=== PATIENT | female | born 1985 | race Caucasian/White ===

== ENCOUNTER 2017-01-12 20:32 | Emergency (ER) | payer OTHER ==
[~2017-01-12] VITALS: Ht 165.1 cm; Wt 97.5 kg
--- NOTE | ~2017-01-12 | CT114 ---
[facility] A Service of [facility] RADIOLOGY TEXT RESULTS PATIENT: DIO PRADHAN LOCATION: SED : [birth year] UNIT #: [id number] AGE: [address]: Jimmy Rich MD SEX: F ORDER DR: [id number] [place] [id number] E MR#: [id number] Acc #: [id number] NAME: DIO PRADHAN : 1985 SEX: F STUDY DATE/TIME: 01/12/2017 23:21 UNIT: SED ROOM: STUDY DESCRIPTION: CT Soft Tissue Neck W Cont Attending Physician: Jimmy Rich M.D. Ordering Physician: Jimmy Rich M.D. MEDICAL IMAGING REPORT This report is preliminary unless electronic signature is present. EXAM CT neck soft tissue neck with contrast, 01/12/2017 HISTORY 31-year-old female in the ED complaining of [id number] day history of severe sore throat and neck swelling. Negative testing for strep throat. TECHNIQUE CT examination of the neck with IV contrast from the skull base through the thoracic inlet with multiplanar reconstructed images. The CT exam was performed with one or more of the following radiation dose reduction techniques: automatic exposure control, adjustment of mA and/or kV according to patient size, and iterative reconstruction. FINDINGS The exam shows moderate bilateral palatine tonsillar enlargement, but there is no evidence of peritonsillar abscess or additional complicating feature. There is no epiglottis enlargement or visible subglottic airway narrowing. Mildly prominent lymph nodes throughout the neck, most likely reactive. Salivary glands and thyroid gland are within normal limits. IMPRESSION 1. Moderate enlargement of the palatine tonsils. No visible peritonsillar abscess or additional complicating feature. 2. No epiglottis enlargement or subglottic airway narrowing. 3. No abscess or additional abnormality elsewhere within the neck. Mildly enlarged scattered lymph nodes, nonspecific but likely reactive. Dictated by... [facility] A Service of [facility] RADIOLOGY TEXT RESULTS PATIENT: DIO PRADHAN LOCATION: SED : 84 UNIT #: [id number] AGE: [address]: Jimmy Rich MD SEX: F ORDER DR: Ghassan Camp M.D. THIS IS AN ELECTRONICALLY VERIFIED REPORT Ghassan Camp M.D. at 01/14/2017 2:44 AM REX/franklin TD: 01/13/2017 12:23 JOB #: [id number] MEDICAL IMAGING REPORT Page 1 of 1
[2017-01-12 23:04] LABS: BUN/CREATININE RATIO 18.57; CALCIUM SERUM 9.2 mg/dL (8.4-10.2); CREATININE SERUM 0.7 mg/dL (0.6-1.4); GLOM FILT RATE Estimated 114.6 mL/min (>60); POTASSIUM 4.2 mmol/L (3.5-5.1)
== END 2017-01-13 00:27 | disposition home or self-care (01) ==
LOC: SED 20:32
PROVIDERS: Emergency Medicine
DX: J03.90 Acute tonsillitis, unspecified (principal); F17.210 Nicotine dependence, cigarettes, uncomplicated
CPT/HCPCS: 36415; 70491; 80048; 84703; 96360; 99283; Q9967